=== PATIENT | male | born 1955 | race Caucasian/White ===

== ENCOUNTER 2020-07-20 08:22 | Inpatient (IN) ==
--- NOTE | 2020-06-30 08:56 | PAT Medication Instructions ---
Medication Instructions Date of Service June 30, 2020 Home Medications atorvastatin 40 mg PO QAM celecoxib 200 mg PO BID empagliflozin 25 mg PO QAM fluoxetine 40 mg PO QAM gabapentin 300 mg PO BID hydroxyzine HCl 10 mg PO QID PRN insulin aspart U-100 [Novolog U-100 Insulin aspart] 6 unit SUBCUT QID insulin glargine [Lantus U-100 Insulin] 36 unit SUBCUT QPM lisinopril 5 mg PO QAM metformin 1,000 mg PO BID trazodone 300 mg PO HS ASK your surgeon for instructions celecoxib 200 mg PO BID DO NOT take the morning of surgery empagliflozin 25 mg PO QAM hydroxyzine HCl 10 mg PO QID PRN insulin aspart U-100 [Novolog U-100 Insulin aspart] 6 unit SUBCUT QID lisinopril 5 mg PO QAM metformin 1,000 mg PO BID Take morning of surgery With a small sip of water, OTHERWISE NOTHING TO EAT OR DRINK AFTER MIDNIGHT: atorvastatin 40 mg PO QAM fluoxetine 40 mg PO QAM gabapentin 300 mg PO BID Take evening before surgery gabapentin 300 mg PO BID hydroxyzine HCl 10 mg PO QID PRN (if needed) insulin glargine [Lantus U-100 Insulin] 36 unit SUBCUT QPM metformin 1,000 mg PO BID trazodone 300 mg PO HS Other Notes If you have any questions please call us at [phone] or [phone] or [phone] or [phone]
--- NOTE | 2020-06-30 12:30 | Anesthesiology Consultation ---
Date of Service June 30, 2020 Assessment & Plan (1) Encounter for pre-operative examination: COVID Status: As of 06/30 assessment, patient denies travel to endemic area, known exposure/sick contacts, or symptoms of COVID19. Patient instructed that they and their household members must follow strict social distancing guidelines, wear a mask in public and avoid travel/events/gatherings for 14 days prior to surgery. Patient reports he and his will continue to isolate and do not have any Thanksgiving plans. Preoperative COVID19 testing to be completed prior to surgery per surgeon's arrangements. Patient made aware to self-isolate as much as possible between COVID testing and surgery. At this time patient unsure of when he is to get his COVID test done. Instructed him to check with his surgeon's office, as timing may differ due to the holiday. BSG AM DOS Chart Review Chart Review: Acceptable Risk for Surgery (pending PCP clearance and echo to be done at [facility] 07/05) and Patient seen in Pre Admission Testing Teaching & Discussion Instructed NPO after midnight before surgery, except medications with 15 cc of water. Medication instructions provided according to the PAT guidelines. History Surgery Operation Date: 07/20/20 10:05 Proposed Procedures p L4-S1 Decompression Fusion, Spinal Cord Monitoring - Josh Sinlcair, Height/Weight Height: 5 ft 11 in Weight: 89 kg Allergies Allergy/AdvReac Type Severity Reaction Status Date / Time No Known Allergies Allergy Verified 06/29/20 08:54 Medications Home Medications Medication Instructions Recorded Confirmed Last Taken atorvastatin 40 mg PO QAM 06/29/20 06/29/20 Unknown celecoxib 200 mg PO BID 06/29/20 06/29/20 Unknown empagliflozin 25 mg PO QAM 06/29/20 06/29/20 Unknown fluoxetine 40 mg PO QAM 06/29/20 06/29/20 Unknown gabapentin 300 mg PO BID 06/29/20 06/29/20 Unknown hydroxyzine HCl 10 mg PO QID PRN 06/29/20 06/29/20 Unknown insulin aspart U-100 [Novolog 6 unit SUBCUT QID 06/29/20 06/29/20 Unknown U-100 Insulin aspart] insulin glargine [Lantus U-100 36 unit SUBCUT QPM 06/29/20 06/29/20 Unknown Insulin] lisinopril 5 mg PO QAM 06/29/20 06/29/20 Unknown metformin 1,000 mg PO BID 06/29/20 06/29/20 Unknown trazodone 300 mg PO HS 06/29/20 06/29/20 Unknown Past Medical History Medical History Arthritis Chronic back pain LOWER BACK Diabetes mellitus, type 2 Hyperlipidemia Hypertension Neuropathy Post traumatic stress disorder Sciatica SOB (shortness of breath) on exertion OUT OF SHAPE Exercise / Class Metabolic Activity III < 4 Walking/Shop/Light housework (Denies any chest pain, some SOB with sta irs due to pain, limited acitivity due to back pain) Past Surgical History Surgical History (Updated 06/29/20 @ 09:06 by Joya Herrera RN) H/O pyloroplasty INFANT History of cholecystectomy History of colonoscopy History of esophagogastroduodenoscopy (EGD) S/P foot surgery, right SECOND TOE Past Anesthesia History No Hx of Anesthesia Complications and No Family Hx of Anesthesia Complications History of PONV No Hx of PONV and No Hx of Motion Sickness Social History Smoking Status: Current every day smoker tobacco type: cigarettes Smoking cigarettes per day: 10 CIGS PER DAY X 50 YRS Do You Dip or Chew Tobacco: No Hx Alcohol Use: No Hx Substance Use: Yes substance use type: marijuana Substance Use Type Other:: MARIJUANA VAPES NIGHTLY -- ADVISED NONE X 72 HRS PRIOR TO SURGERY Review of Systems Pt denies any recent chest pain, shortness of breath, palpitations, cough, fever, URI, or uncontrolled acid reflux. Physical Exam Vital Signs BP: 130/83 P: 69bpm SPO2: 95% RA T: 97.8 F R: 16 ENMT Mouth: + edentulous Thyromental Distance: > or= 3.5 Finger Breadths Mallampati Class: I Neck + limited neck extension and + facial hair (large bushy [place], pt does not want to shave but will trim around mouth) Respiratory normal respiratory effort and + prolonged expiratory phase Auscultation: lungs clear to auscultation bilaterally Cardiovascular RRR, no murmur, no edema Testing Laboratory Results 06/30/20 12:41 06/30/20 12:41 PT 10.9 Seconds (9.0-12.0) 06/30/20 12:41 INR 1.0 (0.9-1.1) 06/30/20 12:41 APTT 28.7 Seconds (21.0-31.0) 06/30/20 12:41 Urine Color Yellow 06/30/20 12:41 Urine Appearance Clear (Clear) 06/30/20 12:41 Urine pH 5.5 (4.5-7.5) 06/30/20 12:41 Ur Specific [place] 1.033 (1.000-1.030) H 06/30/20 12:41 Urine Protein Negative (Negative) 06/30/20 12:41 Urine Glucose (UA) 3+ (Negative) H 06/30/20 12:41 Urine Ketones Negative (Negative) 06/30/20 12:41 Urine Nitrite Negative (Negative) 06/30/20 12:41 Ur Leukocyte Esterase Negative (Negative) 06/30/20 12:41 Blood Type B Positive 06/30/20 12:41 Antibody Screen NEGATIVE 06/30/20 12:41 Electrocardiogram Date: 06/30/20 Findings: + NSR @ (66bpm) Left axis deviation. Chest X-Ray Date: 06/30/20 Findings: + NAD
--- NOTE | 2020-06-30 13:09 | XRay Report ---
TWO VIEW CHEST CLINICAL HISTORY: Preoperative examination. FINDINGS: PA and lateral chest radiographs are obtained. No prior studies are available for compariso n at the time of dictation. The cardiomediastinal silhouette is unremarkable. There is mild bibasila r scarring/atelectasis. The lungs and pleural spaces are otherwise clear. There is no pneumothorax. T he bony thorax appears intact. IMPRESSION: No active disease in the chest. ACT 112: Negative or not required by law. Electronically signed by: Jarrett Lozoya M.D. 06/30/2020 1:08 PM
--- NOTE | 2020-06-30 13:12 | Electrocardiogram Report ---
Test Reason : Blood Pressure : / mmHG Vent. Rate : 066 BPM Atrial Rate : 066 BPM P-R Int : 144 ms QRS Dur : 094 ms QT Int : 436 ms P-R-T Axes : 030 -36 031 degrees QTc Int : 457 ms Normal sinus rhythm Left axis deviation Abnormal ECG No previous ECGs available Confirmed by Perez Laboy ([id number]) on 06/30/2020 1:11:47 PM Referred By: Josh Sinclair Confirmed By:Perez Laboy
[2020-06-30 13:30] LABS: Appearance Urine Clear (Clear); Bilirubin Urine Negative (Negative); Blood Urine Negative (Negative); Color Urine Yellow; Glucose Urine UA 3+ (Negative); Ketones Urine Negative (Negative); Leukocyte Esterase Urine Negative (Negative); Nitrite Urine Negative (Negative); Protein Urine Negative (Negative); Specific Gravity Urine 1.033 (1.000-1.030); Urobilinogen Urine Positive (Negative); pH Urine 5.5 (4.5-7.5)
[2020-06-30 13:46] LABS: Partial Thromboplastin Time 28.7 Seconds (21.0-31.0); Prothrombin Time 10.9 Seconds (9.0-12.0)
[2020-06-30 13:54] LABS: BUN Creatinine Ratio 18.6 (10-20); Calcium 9.6 mg/dl (8.5-10.1); Creatinine Clr Calc Pharmacy 68.5 ml/min; Est GFR (African American) 78.1; Est GFR (Non-African American) 67.4; Potassium 4.4 mmol/L (3.5-5.1)
[2020-06-30 14:23] LABS: Hematocrit (blood only) 50.8 % (42-52); Hemoglobin 17.1 g/dL (14.0-18.0); Mean Corpuscular Hemoglobin 31.4 pg (25-34); Mean Corpuscular Hgb Conc 33.7 g/dL (32-36); Mean Corpuscular Volume 93.4 fL (80-100); Mean Platelet Volume 11.9 fL (7.4-10.4); Platelet Count 106 K/uL (130-400); RDW Coefficient of Variation 13.1 % (11.5-14.5); RDW Standard Deviation 44.7 fL (36.4-46.3); Red Blood Count 5.44 M/uL (4.7-6.1)
[2020-06-30 14:24] LABS: Basophils # (auto) 0.03 K/uL (0-0.2); Basophils % (auto) 0.5 %; Eosinophils # (auto) 0.17 K/uL (0-0.5); Eosinophils % (auto) 2.6 %; Immature Granulocytes # (auto) 0.02 K/uL (0.00-0.02); Immature Granulocytes % (auto) 0.3 %; Lymphocytes # (auto) 1.55 K/uL (1.2-3.4); Lymphocytes % (auto) 23.8 %; Monocytes # (auto) 0.45 K/uL (0.11-0.59); Monocytes % (auto) 6.9 %; Neutrophils # (auto) 4.28 K/uL (1.4-6.5); Neutrophils % (auto) 65.9 %
[~2020-07-20 08:22] MED LIST: ACETAMINOPHEN 500 MG TAB PO SCH; CeleBREX 200 MG CAP PO SCH; GABAPENTIN 300 MG CAP PO SCH; LR 15ML/HR IV SCH; ceFAZolin 2000MG 2,000 MG/15 ML SYR IV SCH
[2020-07-20] MEDS ORDERED: HYDROmorphone INJ 2 MG/ML SYR/VIAL ONE (08:40)
[2020-07-20] MEDS ORDERED: MIDAZOLAM HCL 1 MG/ML 2ML VIAL ONE (08:40)
--- NOTE | 2020-07-20 10:06 | History & Physical Bridge Note ---
Date of Service July 20, 2020 History & Physical Bridge Note I have examined the patient, reviewed the History & Physical and in the interval since the performance of the History & Physical I have noted the following changes of clinical significance: no changes noted
--- NOTE | 2020-07-20 10:07 | History & Physical Report ---
Date of Service July 20, 2020 Assessment & Plan (1) Neurogenic claudication due to lumbar spinal stenosis: Admission and Anticipated Discharge Date Admission Date: L4-S1 decompression fusion History of Present Illness Chief Complaint: Back and bilateral leg pain Primary Care Provider: NO PCP This is a 64-year-old male who presents with above-mentioned diagnosis failing course of nonoperative care is here for surgical invention. Allergies Allergy/AdvReac Type Severity Reaction Status Date / Time No Known Allergies Allergy Verified 07/20/20 08:51 Home Medications Medication Instructions Recorded Confirmed Type atorvastatin 40 mg PO QAM 06/29/20 07/20/20 History celecoxib 200 mg PO BID 06/29/20 07/20/20 History empagliflozin 25 mg PO QAM 06/29/20 07/20/20 History fluoxetine 40 mg PO QAM 06/29/20 07/20/20 History gabapentin 300 mg PO BID 06/29/20 07/20/20 History hydroxyzine HCl 10 mg PO TID PRN 06/29/20 07/20/20 History insulin aspart U-100 [Novolog 6 unit SUBCUT QID 06/29/20 07/20/20 History U-100 Insulin aspart] insulin glargine [Lantus U-100 36 unit SUBCUT QPM 06/29/20 07/20/20 History Insulin] lisinopril 5 mg PO QAM 06/29/20 07/20/20 History metformin 1,000 mg PO BID 06/29/20 07/20/20 History trazodone 300 mg PO HS 06/29/20 07/20/20 History Past Med/Surg History Medical History Arthritis Chronic back pain LOWER BACK Diabetes mellitus, type 2 Hyperlipidemia Hypertension Neuropathy Post traumatic stress disorder Sciatica SOB (shortness of breath) on exertion OUT OF SHAPE Surgical History H/O pyloroplasty History of cholecystectomy History of colonoscopy History of esophagogastroduodenoscopy (EGD) S/P foot surgery, right SECOND TOE Social History Smoking Status: Current every day smoker Cigarettes Per Day: 10 CIGS PER DAY X 50 YRS; Second Hand Exposure: Yes (FATHER/MOTHER/SISTERS SMOKED, SPOUSE SMOKES); Do You Dip or Chew Tobacco: No; Hx Alcohol Use: No Hx Substance Use: Yes Substance Use Type Other:: MARIJUANA VAPES NIGHTLY -- ADVISED NONE X 72 HRS PRIOR TO SURGERY Preferred Language: Tamaz[place] Communication Ability: Effective Sprinkler Irrigation Equipment Mechanic Required: No Beliefs That Will Affect Care: None Current Living Situation: Spouse Other Information That Helps Us Care for You: No Feels Safe at Home: Yes Safety Concerns: Feels Safe At This Time Assistive Devices: Cane, Denture - Upper and Glasses Physical Exam Physical Exam: Patient is alert and oriented Heart regular rate and rhythm Lungs clear to auscultation Results & Data ([facility]) Vital Signs (Past 12 Hours) Vital Signs Temp Pulse Resp BP Pulse Ox 07/20/20 08:58 37.1 C 93 H 18 188/94 H 96
[2020-07-20] MEDS ORDERED: fentaNYL citrate 100 MCG/2 ML VIAL IV PRN (10:12)
[2020-07-20] MEDS ORDERED: ATROPINE SULFATE 0.1 MG/ML 10ML SYR IV PRN (10:12)
[2020-07-20] MEDS ORDERED: ONDANSETRON INJ 2 MG/ML 2 ML VIAL IV PRN ×2 (10:12→14:23)
[2020-07-20] MEDS ORDERED: ePHEDrine sulfate 50 MG/ML AMP IV PRN (10:12)
[2020-07-20] MEDS ORDERED: HYDROmorphone INJ 1 MG/ML SYRINGE IV PRN ×2 (10:12→14:23)
[2020-07-20] MEDS ORDERED: BUPIVACAINE/EPINEPHRINE 0.5% MPF 1:200,000 30 ML VIAL ONE (10:20)
[2020-07-20] MEDS ORDERED: BACITRACIN INJ 50,000 UNIT VIAL ONE (10:21)
[2020-07-20] MEDS ORDERED: NEOSTIGMINE METHYLSULFATE 1 MG/ML 10ML VIAL ONE (11:06)
[2020-07-20] MEDS ORDERED: ePHEDrine sulfate 50 MG/ML SYR ONE (11:06)
[2020-07-20] MEDS ORDERED: ONDANSETRON INJ 2 MG/ML 2 ML VIAL ONE (11:06)
[2020-07-20] MEDS ORDERED: ROCURONIUM BROMIDE 10 MG/ML 5 ML VIAL IV ONE (11:06)
[2020-07-20] MEDS ORDERED: LIDOCAINE HCL 2% 2 ML VIAL/AMP(20MG/ML) INFIL ONE (11:06)
[2020-07-20] MEDS ORDERED: GLYCOPYRROLATE 0.2 MG/ML VIAL ONE (11:06)
[2020-07-20] MEDS ORDERED: DEXAMETHASONE SOD INJ 4 MG/ML VIAL ONE (11:06)
[2020-07-20] MEDS ORDERED: PROPOFOL IV EMULSION 10 MG/ML 20 ML VIAL IV ONE (11:06)
[2020-07-20] MEDS ORDERED: LARYING-O-JET KIT (LTA) ONE (11:16)
[2020-07-20] MEDS ORDERED: PHENYLEPHRINE 100MCG/ML 5ML SYR ONE (12:05)
[2020-07-20] MEDS ORDERED: FLOSEAL HEMOSTATIC MATRIX 10ML TOP ONE (12:49)
--- NOTE | 2020-07-20 12:51 | Operative Report ---
Post Operative Report Pre & Post Diagnosis Operation Date: 07/20/20 10:25 Pre-Op Diagnosis: Lumbar spinal stenosis with neurogenic claudication Post-Op Diagnosis: Same I identified the patient and participated in the time-out.: Yes Procedure Operation Date: 07/20/20 10:25 Actual Procedures #1 revision decompression with bilateral medial facetectomies and foraminotomies L3-4, L4-5 and L5-S1. #2 posterior spinal fusion L4-5 L5-S1. #3 placement posterior instrumentation L4-5 L5-S1. #4 interbody fusion L4-5 L5-S1. #5 placement peek cage 11 x 22 mm at L4-5 and 12 x 22 mm at L5-S1. #6 placement locally harvested morselized autograft in the posterior gutters. #7 placement infuse collagen sponge, master graft in the posterior gutters and ostial in terbody space. Surgeon Josh Sinclair DO Laundry Attendant Ninoska Calabrese Estimated Blood Loss 300 Findings Consistent with Post-Op Diagnosis Specimens None Indications This is a 64-year-old male who presents with above-mentioned diagnosis after failing course of nonoperative care is here for the above-mentioned procedure. Description of Procedure Patient was met with identified informed consent obtained. Patient was then taken to the operative suite under the patient placed in a prone position on the Paulo table on top David frame. All bony prominences well-padded eyes inspected to ensure no external pressure placed upon the bed at this point the lumbar spine was prepped and draped in normal sterile fashion. Sharp dissection with the assistance of Bovie cautery was performed down to and exposing the lamina and transverse processes of L4-L5 and the sacral ala bilaterally. From a caudal cephalad fashion revision complete laminectomy of L5 L4 partial laminectomy of L3 was performed including bilateral medial facetectomies and foraminotomies addressing severe spinal stenosis. Pedicle screws were then placed in all 4 L5 and S1 levels bilaterally with the assistance of fluoroscopy and the proper sized jazmyn placed. Of a transforaminal portion right complete discectomy of L5-S1 was performed endplates curetted to subcortical bleeding bone and a 12 x 26 mm peek cage filled osteobone graft tapped in position. Then proceeded L4-[address] of a transforaminal approach on the right complete discectomy was performed endplates curetted to subcortical mean bone and an 11 x 26 mm peek cage with osteobone graft tapped in position. The rods were then locked in final position bilaterally. The transverse processes of L4- L5 and sacral ala burred to subcortical bleeding bone. Infuse collagen sponge mass graft local autograft was placed in the posterior gutters. 15 round VENKATESH drain inserted. The incision was then closed with 1 Vicryl the fascia 2-0 Vicryl subcutaneously and 4 Monocryl for final skin closure. Steri-Strip sterile dressings placed. Patient waken taken PACU stable condition. Please note spinal cord monitoring was utilized at the procedure no changes noted. Lastly Ninoska Calabrese was present at the entire surgery involved in patient positioning complex portions of the surgery and final skin closure. I attest to the content of the Intraoperative Record and any orders documented therein. Any exceptions are noted below.
--- NOTE | 2020-07-20 13:08 | Fluoroscopy Report ---
FL lumbar spine 2-3V CLINICAL HISTORY: L4-S1 DECOMP/FUSION COMPARISON STUDY: None. FLUOROSCOPY TIME: 16 seconds. FINDINGS: 2 fluoroscopic spot images of the lumbar spine demonstrate posterior decompression and fusi on from L4 through S1 with pedicle screws and rods. The hardware appears intact. IMPRESSION: Fluoroscopy provided for L4-S1 posterior decompression and fusion ACT 112: Negative or not required by law. Electronically signed by: Koko Leyva M.D. 07/20/2020 1:06 PM
[2020-07-20] MEDS ORDERED: hydrOXYzine HCl 10 MG TAB PO PRN (14:23)
[2020-07-20] MEDS ORDERED: ONDANSETRON 4 MG OD TAB PO PRN (14:23)
[2020-07-20] MEDS ORDERED: ACETAMINOPHEN 1,000 MG/100 ML VIAL IV PRN (14:23)
[2020-07-20] MEDS ORDERED: FAMOTIDINE 20 MG TAB PO PRN (14:23)
[2020-07-20] MEDS ORDERED: traMADol HCL 50 MG TABLET PO PRN (14:23)
[2020-07-20] MEDS ORDERED: ACETAMINOPHEN 500 MG TAB PO PRN (14:23)
[2020-07-20] MEDS ORDERED: PROMETHAZINE HCL 12.5 MG in SODIUM CHLORIDE 0.9% 50 ML IV PRN (14:23)
[2020-07-20] MEDS ORDERED: MAGNESIUM HYDROXIDE SUSP 30 ML UDC PO PRN (14:23)
[2020-07-20] MEDS ORDERED: diphenhydrAMINE Capsule 25 MG CAP PO PRN (14:23)
[2020-07-20] MEDS ORDERED: METOCLOPRAMIDE HCL INJ 5 MG/ML 2 ML VIAL IV PRN (14:23)
[2020-07-20] MEDS ORDERED: DO NOT ADMINISTER FLU VACCINE PRN (14:23)
[2020-07-20] MEDS ORDERED: ALUMINUM/MAGNESIUM SUSP 30 ML UDC PO PRN (14:23)
[2020-07-20] MEDS ORDERED: LORazepam 0.5 MG TAB PO PRN (14:23)
[2020-07-20] MEDS ORDERED: bisacodyL 10 MG SUPP PR PRN (14:23)
[2020-07-20] MEDS ORDERED: LORazepam 0.5 MG/1 ML VIAL IV PRN (14:23)
[2020-07-20] MEDS ORDERED: DO NOT ADMINISTER PNEUMOCOCCAL VACCINE PRN (14:23)
[2020-07-20] MEDS ORDERED: HYDROmorphone INJ 0.5 MG/0.5 ML SYR IV PRN (14:23)
[2020-07-20] MEDS ORDERED: hydrOXYzine HCl 25 MG TAB PO PRN (14:23)
[2020-07-20] MEDS ORDERED: NALOXONE HCL 0.4 MG/1 ML VIAL/CARP IV PRN (14:23)
[2020-07-20] MEDS ORDERED: SOD PHOSPHATE/SOD BIPHOSPHATE ENEMA 132 ML BTL PR PRN (14:23)
[2020-07-20] MEDS ORDERED: GLUCOSE 40% GEL 15 GM TUBE PO PRN ×2 (14:45→15:45)
[2020-07-20] MEDS ORDERED: DEXTROSE 50% 50 ML SYRINGE IV PRN ×2 (14:45→15:45)
[2020-07-20] MEDS ORDERED: CARBOHYDRATES FOR HYPOGLYCEMIA PO PRN ×2 (14:45→15:45)
[2020-07-20] MEDS ORDERED: GLUCOSE 10 TABS/TUBE PO PRN ×2 (14:45→15:45)
[2020-07-20] MEDS ORDERED: GLUCAGON FOR INJ 1 MG VIAL IM PRN ×2 (14:45→15:45)
[2020-07-20] MEDS ORDERED: PHARMACY GLYCEMIC MGMT CONSULT PRN (15:15)
[2020-07-20] MEDS: SODIUM CHLORIDE 0.9% 1000ML 1,000 ML IV SCH ×2 (15:31→23:59)
--- NOTE | 2020-07-20 15:59 | Hospitalist Consultation ---
Date of Consultation July 20, 2020 Assessment & Plan (1) Neurogenic claudication due to lumbar spinal stenosis: POD #0 lumbar decompression and fusion - no immediate complications noted - Pain control, PT/OT, DVT prophylaxis per primary service - Encourage incentive spirometry (2) Hypertension: Currently taking Lisinopril 5 mg po daily per pt although last cardiology note mentioned increasing to 10 mg daily. Pt unsure if he made the change. Since BP is currently only 113/70 will continue the 5 mg for now. Recommend he f/u with PCP as outpatient to determine if higher dose is necessary/ (3) Diabetes mellitus, type 2: Pharmacy consult for assistance with glycemic management - appreciate input (4) Post traumatic stress disorder: - Continue outpatient meds (5) Hyperlipidemia: - Continue statin therapy (6) Tobacco abuse: Pt requests nicotine patch while admitted - aware of the need to continue to work towards quitting Pt seen and reviewed with collaborating physician, Dr. Mcghee. Plan of care discussed and as outlined above. We will continue to follow the patient with you. A member of the [facility] Hospitalist team is available 11/03 at [phone]. Please don't hesitate to call with questions. Thank you for this consultation. Katarina Meza PA-C Supervising Physician Co-Signing Physician Notes Patient seen and examined by me, care coordinated with Michelle Meza PA-C, please refer to her note above for further detail. Pt is a 64 y/o male with a hx of IRDM, HTN, dyslipidemia and PTSD/anxiety, tobacco use who underwent lumbar decompression/fusion today by Dr. Sinclair and f or whom we have been consulted to assist with post-operative medical management. Pt is currently seen lying in bed without specific complaint. He has some lower back pain but overall feels this is controlled. At present, he denies chest pain, shortness of breath, abdominal pain, Loera catheter is placed. He is able to move his lower extremities. Lungs are clear to auscultation bilaterally, without any crackles or wheezing. Heart sounds regular. Abdomen soft, nontender, nondistended. Loera catheter is draining clear yellow urine. Drains with serosanguineous fluid noted. Continue to monitor vital signs, monitor for acute blood loss anemia, wean off oxygen as tolerated. Counseled patient on tobacco use, will order nicotine patch while inpatient. Alexys Mcghee MD History of Present Illness Reason for Consultation: Post-operative medical management Attending Physician: Josh Sinclair DO History of Present Illness This is a 64 y/o male with a PMH of IRDM, HTN, dyslipidemia and PTSD/anxiety who underwent lumbar decompression/fusion today by Dr. Sinclair and for whom we have been consulted to assist with post-operative medical management. Pt is currently seen lying in bed without specific complaint. He has some lower back pain but overall feels this is controlled. He reports that he had some lower extremity weakness prior to surgery with at least one fall at home related to this. History of a prior back surgery for sciatica after which he did well for several years. At present, he denies chest pain, shortness of breath, wheezing, ST, N/V, dizziness or MONTOYA. He notes no change to his chronic cough. He has been trying to cut back on smoking but reports that he is still smoking at least 1/2 PPD and would like a nicotine patch while he is here. He uses an insulin sliding scale at home as well as Lantus 36 units at bedtime. Insulin requirements can be somewhat variable. Allergies Allergy/AdvReac Type Severity Reaction Status Date / Time No Known Allergies Allergy Verified 07/20/20 08:51 Home Medications Medication Instructions Recorded Confirmed Type atorvastatin 40 mg PO QAM 06/29/20 07/20/20 History celecoxib 200 mg PO BID 06/29/20 07/20/20 History empagliflozin 25 mg PO QAM 06/29/20 07/20/20 History fluoxetine 40 mg PO QAM 06/29/20 07/20/20 History gabapentin 300 mg PO BID 06/29/20 07/20/20 History hydroxyzine HCl 10 mg PO TID PRN 06/29/20 07/20/20 History insulin aspart U-100 [Novolog 6 unit SUBCUT QID 06/29/20 07/20/20 History U-100 Insulin aspart] insulin glargine [Lantus U-100 36 unit SUBCUT QPM 06/29/20 07/20/20 History Insulin] lisinopril 5 mg PO QAM 06/29/20 07/20/20 History metformin 1,000 mg PO BID 06/29/20 07/20/20 History trazodone 300 mg PO HS 06/29/20 07/20/20 History Patient History Medical History Arthritis Chronic back pain LOWER BACK Diabetes mellitus, type 2 Hyperlipidemia Hypertension Neuropathy Post traumatic stress disorder Sciatica SOB (shortness of breath) on exertion OUT OF SHAPE Surgical History H/O pyloroplasty INFANT History of cholecystectomy History of colonoscopy History of esophagogastroduodenoscopy (EGD) S/P foot surgery, right SECOND TOE Social History Smoking Status: Current every day smoker Cigarettes Per Day: 10 CIGS PER DAY X 50 YRS; Second Hand Exposure: Yes (FATHER/MOTHER/SISTERS SMOKED, SPOUSE SMOKES); Do You Dip or Chew Tobacco: No; Hx Alcohol Use: No Hx Substance Use: Yes Substance Use Type Other:: MARIJUANA VAPES NIGHTLY -- ADVISED NONE X 72 HRS PRIOR TO SURGERY Preferred Language: Welsh Communication Ability: Effective Sanitary Landfill Supervisor Required: No Beliefs That Will Affect Care: None Current Living Situation: Spouse Other Information That Helps Us Care for You: No Feels Safe at Home: Yes Safety Concerns: Feels Safe At This Time Assistive Devices: Denture - Upper and Walker Review of Systems Review of Systems: All systems reviewed & are unremarkable except as noted in HPI & below Constitutional: no fever, no chills and no sweats Eyes: no diplopia Ear, Nose, Mouth, Throat: no sore throat and no dysphagia Respiratory: + cough (chronic and unchanged); no dyspnea and no wheezing Cardiovascular: + dyspnea on exertion (chronic with walking uphill); no chest pain, no palpitations, no lightheadedness and no edema Gastrointestinal: no abdominal pain, no nausea and no vomiting Genitourinary: + problem reported (catheter in place but still with urge to urinate); no dysuria Musculoskeletal: + back pain Neurologic: + unsteadiness and + falls (legs gave out about a month ago - fell at home); no dizziness, no syncope, no headache(s) and no abnormal speech Psychiatric: Hx PTSD and anxiety - overall controlled with medications Physical Exam Constitutional: well developed and well nourished; no acute distress Eyes: + anicteric sclerae Neck: trachea midline Respiratory: no respiratory distress and no labored breathing Auscultation: lungs clear to auscultation bilaterally; no rales, no rhonchi and no wheezes Cardiovascular: Rate/Rhythm: regular rate and regular rhythm Heart Sounds: no gallop, no murmur and no cardiac rub Gastrointestinal (Abdomen): Inspection/Auscultation: normal bowel sounds; abdomen not distended Percussion/Palpation: abdomen soft; abdomen nontender Musculoskeletal: Head/Neck/Chest: normocephalic, head atraumatic and neck supple VENKATESH drain with small amount of sanguinous drainage Skin: no rashes, warm and dry Neurologic: Moving all extremities. Psychiatric: A+Ox3, euthymic affect Results & Data Results & Data ([facility]) Vital Signs (Past 12 Hours) Vital Signs Temp Pulse Pulse Resp BP BP Pulse Ox 07/20/20 15:14 36.4 C L 94 H 16 113/70 96 07/20/20 14:32 100 H 16 155/72 H 97 07/20/20 14:00 36.5 C 93 H 18 151/80 H 98 07/20/20 13:40 36.3 C L 90 12 144/72 H 99 07/20/20 13:30 90 13 156/81 H 98 07/20/20 13:20 83 12 139/69 98 07/20/20 13:10 76 12 107/59 L 97 07/20/20 13:04 36.3 C L 89 16 101/60 96 07/20/20 08:58 37.1 C 93 H 18 188/94 H 96 Laboratory Results 06/30/20 06/30/20 06/30/20 12:41 12:41 12:41 WBC 6.50 RBC 5.44 Hgb 17.1 Hct 50.8 MCV 93.4 MCH 31.4 MCHC 33.7 RDW Std Deviation 44.7 RDW Coeff of Ade 13.1 Plt Count 106 L MPV 11.9 H Immature Gran % (Auto) 0.3 Neut % (Auto) 65.9 Lymph % (Auto) 23.8 [place] % (Auto) 6.9 Eos % (Auto) 2.6 Baso % (Auto) 0.5 Neut # (Auto) 4.28 Lymph # (Auto) 1.55 [place] # (Auto) 0.45 Eos # (Auto) 0.17 Baso # (Auto) 0.03 Immature Gran # (Auto) 0.02 PT 10.9 INR 1.0 APTT 28.7 PTT Ratio 1.0 Sodium Potassium Chloride Carbon Dioxide Anion Gap BUN Creatinine Est Cr Clr Drug Dosing Est GFR ( Amer) Est GFR (Non-Af Amer) BUN/Creatinine Ratio Glucose POC Glucose Calcium Urine Color Urine Appearance Urine pH Ur Specific [place] Urine Protein Urine Glucose (UA) Urine Ketones Urine Blood Urine Nitrite Urine Bilirubin Urine Urobilinogen Ur Leukocyte Esterase Blood Type B Positive Antibody Screen NEGATIVE Crossmatch 06/30/20 06/30/20 07/20/20 12:41 12:41 08:46 WBC RBC Hgb Hct MCV MCH MCHC RDW Std Deviation RDW Coeff of Ade Plt Count MPV Immature Gran % (Auto) Neut % (Auto) Lymph % (Auto) [place] % (Auto) Eos % (Auto) Baso % (Auto) Neut # (Auto) Lymph # (Auto) [place] # (Auto) Eos # (Auto) Baso # (Auto) Immature Gran # (Auto) PT INR APTT PTT Ratio Sodium 139 Potassium 4.4 Chloride 107 Carbon Dioxide 29 Anion Gap 3.0 BUN 21 H Creatinine 1.13 Est Cr Clr Drug Dosing 68.5 Est GFR ( Amer) 78.1 Est GFR (Non-Af Amer) 67.4 BUN/Creatinine Ratio 18.6 Glucose 160 H POC Glucose 181 H Calcium 9.6 Urine Color Yellow Urine Appearance Clear Urine pH 5.5 Ur Specific [place] 1.033 H Urine Protein Negative Urine Glucose (UA) 3+ H Urine Ketones Negative Urine Blood Negative Urine Nitrite Negative Urine Bilirubin Negative Urine Urobilinogen Positive H Ur Leukocyte Esterase Negative Blood Type Antibody Screen Crossmatch 07/20/20 07/20/20 07/20/20 09:18 13:06 14:20 WBC RBC Hgb Hct MCV MCH MCHC RDW Std Deviation RDW Coeff of Ade Plt Count MPV Immature Gran % (Auto) Neut % (Auto) Lymph % (Auto) [place] % (Auto) Eos % (Auto) Baso % (Auto) Neut # (Auto) Lymph # (Auto) [place] # (Auto) Eos # (Auto) Baso # (Auto) Immature Gran # (Auto) PT INR APTT PTT Ratio Sodium Potassium Chloride Carbon Dioxide Anion Gap BUN Creatinine Est Cr Clr Drug Dosing Est GFR ( Amer) Est GFR (Non-Af Amer) BUN/Creatinine Ratio Glucose POC Glucose 216 H 234 H Calcium Urine Color Urine Appearance Urine pH Ur Specific [place] Urine Protein Urine Glucose (UA) Urine Ketones Urine Blood Urine Nitrite Urine Bilirubin Urine Urobilinogen Ur Leukocyte Esterase Blood Type B Positive Antibody Screen NEGATIVE Crossmatch See Detail Diagnostic Findings Chest X-ray 06/30/20 - IMPRESSION: No active disease in the chest. Medications Administered Lactated Ringer's (Lr) 1,000 mls @ 15 mls/hr IV .Q24H MARY Stop: 07/21/20 05:59 Last Infusion: 07/20/20 10:36 Dose: 0 mls/hr Documented by: [id number] Admin: 07/20/20 09:29 Dose: 15 mls/hr Documented by: [id number] Cefazolin Sodium (Ancef 2000mg) 2,000 mg in 15 mls @ 3.75 mls/min IV Q8H [facility]; Protocol Stop: 07/21/20 02:03 Last Admin: 07/20/20 17:14 Dose: 3.75 mls/min Documented by: [id number] Sodium Chloride (Nss 1000ml) 1,000 mls @ 100 mls/hr IV .Q10H MARY Stop: 08/19/20 14:22 Last Admin: 07/20/20 15:31 Dose: 100 mls/hr Documented by: [id number] Insulin Aspart (Insulin Aspart 100 Units/Ml 3 Ml Pen) 0 units SC ACHS MARY Stop: 08/19/20 16:29 Last Admin: 07/20/20 17:13 Dose: 12 units Documented by: [id number] Cosigned by: [id number] Ketorolac Tromethamine (Ketorolac Tromethamine 15 Mg/Ml Vial) 15 mg IV Q6 MARY Stop: 07/21/20 12:01 Last Admin: 07/20/20 17:15 Dose: 15 mg Documented by: [id number] Nicotine (Nicotine 21 Mg/24 Hr Tdsy) 21 mg TD QAM MARY Stop: 08/19/20 16:59 Last Admin: 07/20/20 17:14 Dose: Not Given Documented by: [id number] Discontinued Medications Acetaminophen (Acetaminophen 500 Mg Tab) 1,000 mg PO PREOP MARY Stop: 07/20/20 18:00 Last Admin: 07/20/20 09:29 Dose: 1,000 mg Documented by: [id number] Bacitracin (Bacitracin Inj 50,000 Unit Vial) Confirm Administered Dose 50,000 units .ROUTE .STK-MED ONE Stop: 07/20/20 10:22 Last Admin: 07/20/20 11:30 Dose: 50,000 units Documented by: [id number] Bupivacaine HCl/Epinephrine Bitart (Bupivacaine/Epinephrine 0.5% Mpf 1:200,000 30 Ml Vial) Confirm Administered Dose 30 ml .ROUTE .STK-MED ONE Stop: 07/20/20 10:21 Last Admin: 07/20/20 11:29 Dose: 20 ml Documented by: [id number] Celecoxib (Celebrex 200 Mg Cap) 200 mg PO PREOP MARY Stop: 07/20/20 18:00 Last Admin: 07/20/20 09:29 Dose: 200 mg Documented by: [id number] Gabapentin (Gabapentin 300 Mg Cap) 300 mg PO PREOP MARY Stop: 07/20/20 18:00 Last Admin: 07/20/20 09:29 Dose: 300 mg Documented by: [id number] Cefazolin Sodium (Ancef 2000mg) 2,000 mg in 15 mls @ 3.75 mls/min IV PREOP MARY; Protocol Stop: 07/20/20 18:00 Last Admin: 07/20/20 10:36 Dose: 3.75 mls/min Documented by: [id number] Insulin Glargine (Insulin Glargine Solostar 100 Units/Ml 3 Ml Pen) 36 units SC 1700 ONE Stop: 07/20/20 17:01 Last Admin: 07/20/20 17:10 Dose: 36 units Documented by: [id number] Cosigned by: [id number] Insulin Human NPH (Novolin-N (Nph) Per Unit Charge) 25 units SQ 1600 ONE Stop: 07/20/20 16:01 Last Admin: 07/20/20 17:08 Dose: 25 units Documented by: [id number] Cosigned by: [id number] Miscellaneous ( Floseal Hemostatic Matrix 10ml) 25 ml TOP ONCE ONE Stop: 07/20/20 12:50 Last Admin: 07/20/20 12:50 Dose: 25 ml Documented by: [id number] (1) Diabetes mellitus, type 2 Diabetes mellitus buttermaker helper insulin use: with correction use (2) Hypertension Hypertension type: essential hypertension Qualified Code(s): I10 - Essential (primary) hypertension
[2020-07-20] MEDS ORDERED: NovoLIN-N (NPH) PER UNIT CHARGE SQ ONE ×2 (16:00)
--- NOTE | 2020-07-20 16:12 | Anesthesiology Progress Note ---
Date of Service July 20, 2020 Anesthesia Post Procedure Vital Signs Vital Signs: Temp Pulse Pulse Resp BP BP Pulse Ox 07/20/20 16:01 36.3 C L 101 H 18 127/71 97 07/20/20 15:14 36.4 C L 94 H 16 113/70 96 07/20/20 14:32 100 H 16 155/72 H 97 07/20/20 14:00 36.5 C 93 H 18 151/80 H 98 07/20/20 13:40 36.3 C L 90 12 144/72 H 99 07/20/20 13:30 90 13 156/81 H 98 07/20/20 13:20 83 12 139/69 98 07/20/20 13:10 76 12 107/59 L 97 07/20/20 13:04 36.3 C L 89 16 101/60 96 07/20/20 08:58 37.1 C 93 H 18 188/94 H 96 Pain Intensity Lower Back: Pain Intensity: 4 Transfer of Care Handoff Completed per policy Notes Mental Status: alert / awake / arousable and participated in evaluation Patient Amnestic to Procedure: Yes Nausea / Vomiting: adequately controlled Pain: adequately controlled Airway Patency, RR, SpO2: stable & adequate BP & HR: stable & adequate Hydration State: stable & adequate Anesthetic Complications: no major complications apparent and Pt Satisfied with anesthetic care
[2020-07-20] MEDS ORDERED: INSULIN GLARGINE SOLOSTAR 100 UNITS/ML 3 ML PEN SC ONE (17:00)
[2020-07-20] MEDS: INSULIN ASPART 100 UNITS/ML 3 ML PEN SC SCH ×2 (17:13→21:34)
[2020-07-20] MEDS: ceFAZolin 2000MG 2,000 MG/15 ML SYR IV SCH (17:14)
[2020-07-20] MEDS: NICOTINE 21 MG/24 HR TDSY TD SCH (17:14)
[2020-07-20] MEDS: KETOROLAC TROMETHAMINE 15 MG/ML VIAL IV SCH ×2 (17:15→23:59)
[2020-07-20] MEDS: traZODone HCL 100 MG TAB PO SCH (21:31)
[2020-07-20] MEDS: GABAPENTIN 300 MG CAP PO SCH (21:32)
[2020-07-20] MEDS: DOCUSATE SODIUM/SENNA 50/8.6MG TAB PO SCH (21:32)
[2020-07-21] MEDS: INSULIN ASPART 100 UNITS/ML 3 ML PEN SC SCH ×6 (00:02→21:27)
[2020-07-21] MEDS: ceFAZolin 2000MG 2,000 MG/15 ML SYR IV SCH (03:12)
[2020-07-21] MEDS: KETOROLAC TROMETHAMINE 15 MG/ML VIAL IV SCH ×2 (04:58→12:51)
[2020-07-21] MEDS: POLYETHYLENE (MIRALAX) 17 GM PACK PO SCH ×3 (04:59→18:00)
[2020-07-21 06:24] LABS: Hematocrit (blood only) 37.7 % (42-52); Hemoglobin 12.9 g/dL (14.0-18.0); Mean Corpuscular Hemoglobin 31.6 pg (25-34); Mean Corpuscular Hgb Conc 34.2 g/dL (32-36); Mean Corpuscular Volume 92.4 fL (80-100); RDW Coefficient of Variation 12.8 % (11.5-14.5); RDW Standard Deviation 43.5 fL (36.4-46.3); Red Blood Count 4.08 M/uL (4.7-6.1); White Blood Count 11.07 K/uL (4.8-10.8)
[2020-07-21 06:49] LABS: Mean Platelet Volume 10.6 fL (7.4-10.4); Platelet Count 88 K/uL (130-400)
[2020-07-21 06:55] LABS: Basophils # (auto) 0.01 K/uL (0-0.2); Basophils % (auto) 0.1 %; Eosinophils # (auto) 0.02 K/uL (0-0.5); Eosinophils % (auto) 0.2 %; Immature Granulocytes # (auto) 0.03 K/uL (0.00-0.02); Immature Granulocytes % (auto) 0.3 %; Lymphocytes # (auto) 0.88 K/uL (1.2-3.4); Lymphocytes % (auto) 7.9 %; Monocytes # (auto) 0.67 K/uL (0.11-0.59); Monocytes % (auto) 6.1 %; Neutrophils # (auto) 9.46 K/uL (1.4-6.5); Neutrophils % (auto) 85.4 %
[2020-07-21 07:00] LABS: BUN Creatinine Ratio 22.9 (10-20); Calcium 8.6 mg/dl (8.5-10.1); Creatinine Clr Calc Pharmacy 77.4 ml/min; Est GFR (African American) 90.5; Est GFR (Non-African American) 78.1; Potassium 3.8 mmol/L (3.5-5.1)
[2020-07-21] MEDS ORDERED: NovoLIN-N (NPH) PER UNIT CHARGE SQ ONE (07:45)
[2020-07-21] MEDS: NICOTINE 21 MG/24 HR TDSY TD SCH (08:36)
[2020-07-21] MEDS: FLUoxetine HCL 20 MG CAP PO SCH (08:37)
[2020-07-21] MEDS: ATORVASTATIN 40 MG TAB PO SCH (08:37)
[2020-07-21] MEDS: GABAPENTIN 300 MG CAP PO SCH ×2 (08:37→21:22)
[2020-07-21] MEDS: lisinopril 5 MG TAB PO SCH (08:38)
[2020-07-21 08:42] LABS: Estimated Average Glucose 160 mg/dl; Hemoglobin A1C 7.2 % (4.5-5.6)
[2020-07-21] MEDS ORDERED: NON-FORMULARY MEDICATION (Empagliflozin 25 mg Tablet) PO SCH (09:00)
--- NOTE | 2020-07-21 10:02 | Orthopedic Progress Note ---
Date of Service July 21, 2020 Assessment & Plan (1) Neurogenic claudication due to lumbar spinal stenosis: Admission and Anticipated Discharge Date Admission Date: July 20, 2020 This time continue physical therapy monitor VENKATESH operatively discharge home in the next few days. Subjective Back pain controlled leg symptoms markedly improved. Physical Exam Physical Exam: Patient is good strength testing appears comfortable. Results & Data ([facility]) Vital Signs (Past 12 Hours) Vital Signs Temp Pulse Resp BP Pulse Ox 07/21/20 07:28 36.7 C 81 16 121/62 96 07/21/20 03:10 36.7 C 89 16 116/64 96 07/20/20 22:47 36.8 C 90 16 105/66 94
--- NOTE | 2020-07-21 11:01 | Pharmacy Report ---
Glycemic Control Consultation - Date of Service July 21, 2020 - Scope Scope: Glycemic Pharmacist consulted for glycemic control and to write orders per [facility] inpatient glycemic control protocol. - Objective Weight: 88.1 kg Accuchecks BSG (last 24hrs): 07/20/20 07/20/20 07/20/20 13:06 14:20 20:37 Glucose POC Glucose 216 H 234 H 277 H 07/21/20 07/21/20 07/21/20 00:02 04:14 06:08 Glucose 148 H POC Glucose 172 H 102 H 07/21/20 07:56 Glucose POC Glucose 180 H Laboratory Data (last 24hrs): 07/21/20 06:08 Potassium 3.8 Carbon Dioxide 26 Anion Gap 5.0 Creatinine 1.00 Est Cr Clr Drug Dosing 77.4 HbA1c: Hemoglobin A1c 7.2 % (4.5-5.6) H 07/21/20 06:08 - Recent Pertinent Medications Outpatient Anti-diabetic Regimen: * Metformin * Jardiance * Novolog 6 units SC QID * Lantus 36 units SC qPM * A1c = 7.2 % 07/21/20 Risk Factors for Insulin Resistance: * Steroids: Dexamethasone 8 mg IV x1 yesterday, none scheduled today, then 8 mg IV qAM ongoing starting tomorrow * Recent Surgery: POD 1 s/p lumbar decompression and fusion * Diet: T2DM - Assessment & Plan Assessment & Plan: ASSESSMENT: * 64 yo M with T2DM with good outpatient control per recent A1c with post-op hyperglycemia 2nd steroids * Effect of dexamethasone yesterday will likely wear off over the course of the day today. * But as AM fasting is significantly elevated, will still add some NPH. Will also continue home dose of Lantus qPM * Will keep Novolog parameters tight despite effects of steroids wearing off today 2nd significant elevation yesterday * Regimen will likely require further adjustment tomorrow when steroids resume PLAN FOR INPATIENT GLYCEMIC CONTROL: * Holding outpatient oral diabetes medications * Basal insulin * NPH 10 units SC x1 this AM. Ongoing determined tomorrow. * Lantus 36 units SQ QDD (home dose) * Bolus insulin * NovoLog per scale ACHS or Q6hrs while NPO * Goal Range: Low 110 mg/dL - High 140 mg/dL * Correction Factor: 20 mg/dL/unit * Nutritional / Prandial insulin per carb ratio of 1 unit per 6 grams CHO consumed Discharge considerations Per Talia Giron: Mr. Spencer is requesting a sliding scale to use post- discharge, as [facility] but [facility]. At this time it's difficult to say what an appropriate correction factor would be as an outpatient, as he's been on steroids here and will be continuing them tomorrow. And therefore starting conservatively is reasonable Discharge recommendation Continue current outpatient regimen and add sliding scale Novolog (in addition to current prandial Novolog), with a correction factor of 30 mg/dL/unit starting with BSG above 140 mg/dL * Please note that the plan above was derived based on current level of insulin resistance and hospital stress. These recommendations are appropriate for inpatient admission only. Plan of care upon discharge will need to be reassessed to avoid potential outpatient hypo/hyperglycemia. Thank you.
[2020-07-21] MEDS: INSULIN GLARGINE SOLOSTAR 100 UNITS/ML 3 ML PEN SC SCH (18:02)
--- NOTE | 2020-07-21 20:31 | Hospitalist Progress Note ---
Date of Service July 21, 2020 Assessment & Plan (1) Post-operative state: POD#1 s/p lumbar surgery by Dr. Sinclair (2) Neurogenic claudication due to lumbar spinal stenosis: POD #1 lumbar decompression and fusion - no immediate complications noted - Pain control, PT/OT - Encourage incentive spirometry -dexamethasone daily per Ortho spine-monitor blood glucose. (3) Hypertension: chronic, stable, BP at goal. Cont current lisinopril. (4) Diabetes mellitus, type 2: Pharmacy consult for assistance with glycemic management -glucose is well controlled post operatively. (5) Post traumatic stress disorder: chronic, stable with no acute issues. Cont fluoxetine and trazodone per home regimen. (6) Tobacco abuse: Nicotine patch provided, encourage to quit. (7) DVT prophylaxis: SCDs Full Dispo-to home in next 1-2 days. Thank you for this consultation. Dalia Atkinson DO [facility]ist Admission and Anticipated Discharge Date Admission Date: July 20, 2020 Subjective cc: consult for post op medical management s/p lumbar surgery, POD#1 -pain well controlled -tolerating PO -has been ambulating -some pain in his feet, that he reports he has discusssed with Dr. Sinclair. -doing well in general Review of Systems Review of Systems: All systems reviewed & are unremarkable except as noted in Subjective Physical Exam Physical Exam: CONSTITUTIONAL: WNWD, vitals as above, generally well- appearing EYES: normal conjunctivae, no scleral icterus ENT: external ear and nose normal, MMM RESPIRATORY: clear to auscultation bilaterally, no crackles, rales or wheezes, normal respiratory effort CARDIOVASCULAR: regular rate and rhythm, S1 and 2 heard without murmurs, gallops or rubs, no JVD, no peripheral edema GASTROINTESTINAL: normal bowel sounds, soft, nontender, nondistended, no guarding. MUSCULOSKELETAL: strength 5/5 throughout, head is normocephalic and atraumatic SKIN: warm and dry NEUROLOGIC: CN 2-12 grossly intact, normal cognition, normal speech, no tremor PSYCHIATRIC: alert cooperative and oriented to person, place and time. Results & Data Results & Data ([facility]) Vital Signs (Past 12 Hours) Vital Signs Temp Pulse Resp BP Pulse Ox 07/21/20 15:31 37.2 C 81 16 124/70 95 Laboratory Results Short CBC 07/21/20 Range/Units 06:08 WBC 11.07 H (4.8-10.8) K/uL Hgb 12.9 L (14.0-18.0) g/dL Hct 37.7 L (42-52) % Plt Count 88 L (130-400) K/uL BMP 07/21/20 06:08 Sodium 141 Potassium 3.8 Chloride 110 H Carbon Dioxide 26 BUN 23 H Creatinine 1.00 Glucose 148 H Calcium 8.6 Medications Administered Current Inpatient Medications Acetaminophen (Acetaminophen 500 Mg Tab) 1,000 mg PO Q8H PRN PRN Reason: MILD Pain Scale 1,2,3 & Pre PT Stop: 08/19/20 14:22 Al Hydrox/Mg Hydrox/Simethicone (Aluminum/Magnesium Susp 30 Ml Udc) 30 ml PO Q6H PRN PRN Reason: Dyspepsia Stop: 08/19/20 14:22 Atorvastatin Calcium (Atorvastatin 40 Mg Tab) 40 mg PO QAM [facility] Stop: 08/20/20 08:59 Last Admin: 07/21/20 08:37 Dose: 40 mg Documented by: Bisacodyl (Bisacodyl 10 Mg Supp) 10 mg MT DAILY PRN PRN Reason: Constipation Stop: 08/19/20 14:22 Dextrose (Dextrose 50% 50 Ml Syringe) 25 - 50 ml IV UD PRN; Protocol PRN Reason: Hypoglycemia Protocol Stop: 08/19/20 15:44 Diphenhydramine HCl (Diphenhydramine Capsule 25 Mg Cap) 25 mg PO Q6H PRN PRN Reason: Allergic Rhinitis/Insomnia Stop: 08/19/20 14:22 Famotidine (Famotidine 20 Mg Tab) 20 mg PO Q12H PRN PRN Reason: Dyspepsia Stop: 08/19/20 14:22 Fluoxetine HCl (Fluoxetine Hcl 20 Mg Cap) 40 mg PO QAM [facility] Stop: 08/20/20 08:59 Last Admin: 07/21/20 08:37 Dose: 40 mg Documented by: Gabapentin (Gabapentin 300 Mg Cap) 300 mg PO BID [facility] Stop: 08/19/20 20:59 Last Admin: 07/21/20 08:37 Dose: 300 mg Documented by: Glucagon (Glucagon For Inj 1 Mg Vial) 1 mg IM UD PRN; Protocol PRN Reason: Hypoglycemia Protocol Stop: 08/19/20 15:44 Glucose (Glucose 40% Gel 15 Gm Tube) 15 - 30 gm PO UD PRN; Protocol PRN Reason: Hypoglycemia Protocol Stop: 08/19/20 15:44 Glucose (Glucose 10 Tabs/Tube) 4 - 8 tabs PO UD PRN; Protocol PRN Reason: Hypoglycemia Protocol Stop: 08/19/20 15:44 Hydromorphone HCl (Hydromorphone Inj 0.5 Mg/0.5 Ml Syr) 0.5 mg IV Q3H PRN PRN Reason: MOD pain (scale 4-6) & Pre PT Stop: 08/03/20 14:22 Hydromorphone HCl (Hydromorphone Inj 1 Mg/Ml Syringe) 1 mg IV Q3H PRN PRN Reason: severe pain (scale 7-10) Stop: 08/03/20 14:22 Hydroxyzine HCl (Hydroxyzine Hcl 10 Mg Tab) 10 mg PO TID PRN PRN Reason: Anxiety Stop: 08/19/20 14:22 Hydroxyzine HCl (Hydroxyzine Hcl 25 Mg Tab) 25 mg PO Q8H PRN PRN Reason: Anxiety Stop: 08/19/20 14:22 Lorazepam (Ativan) 0.5 mg in 1 mls @ 0.5 mls/min IV Q8H PRN PRN Reason: Sedation/Anxiety Stop: 08/19/20 14:22 Promethazine HCl 12.5 mg/ (Sodium Chloride) 50.5 mls @ 204 mls/hr IV Q6H PRN PRN Reason: Nausea &/or Vomiting Stop: 08/19/20 14:22 Dexamethasone Sodium Phosphate (8 mg/ Syringe) 2 mls @ 1 mls/min IV DAILY [facility]ARY Stop: 08/21/20 08:59 Influenza Virus Vaccine Quadrival (Do Not Administer Flu Vaccine) 1 ea N/A PRN PRN PRN Reason: Notification Stop: 08/19/20 14:22 Insulin Aspart (Insulin Aspart 100 Units/Ml 3 Ml Pen) 0 units SC ACHS [facility] Stop: 08/19/20 16:29 Last Admin: 07/21/20 18:00 Dose: 7 units Documented by: Insulin Glargine (Insulin Glargine Solostar 100 Units/Ml 3 Ml Pen) 36 units SC QDD MARY; Protocol Stop: 08/20/20 16:29 Last Admin: 07/21/20 18:02 Dose: 36 units Documented by: Lisinopril (Lisinopril 5 Mg Tab) 5 mg PO [facility] Stop: 08/20/20 08:59 Last Admin: 07/21/20 08:38 Dose: 5 mg Documented by: Lorazepam (Lorazepam 0.5 Mg Tab) 0.5 mg PO Q8H PRN PRN Reason: Sedation/Anxiety Stop: 08/19/20 14:22 Magnesium Hydroxide (Magnesium Hydroxide Susp 30 Ml Udc) 30 ml PO DAILY PRN PRN Reason: Constipation Stop: 08/19/20 14:22 Metoclopramide HCl (Metoclopramide Hcl Inj 5 Mg/Ml 2 Ml Vial) 10 mg IV Q6H PRN PRN Reason: Nausea &/or Vomiting Stop: 08/19/20 14:22 Miscellaneous (Carbohydrates For Hypoglycemia ) 15 - 30 gm PO UD PRN PRN Reason: Hypoglycemia Treatment Stop: 08/19/20 15:44 Miscellaneous (Remove Nicoderm Patch) 1 ea N/A DAILY@0859 [facility] Stop: 08/20/20 08:58 Last Admin: 07/21/20 08:36 Dose: Not Given Documented by: Miscellaneous Information (Pharmacy Glycemic Mgmt Consult) 1 ea N/A UD PRN PRN Reason: Consult Stop: 08/19/20 15:14 Naloxone HCl (Naloxone Hcl 0.4 Mg/1 Ml Vial/Carp) 0.1 mg IV Q5M PRN; Protocol PRN Reason: Oversedation/Resp Depression Stop: 08/19/20 14:22 Nicotine (Nicotine 21 Mg/24 Hr Tdsy) 21 mg TD [facility] Stop: 08/19/20 16:59 Last Admin: 07/21/20 08:36 Dose: Not Given Documented by: Non-Formulary Medication (Empagliflozin) 25 mg PO [facility] Stop: 08/20/20 08:59 Ondansetron HCl (Ondansetron Inj 2 Mg/Ml 2 Ml Vial) 4 mg IV Q6H PRN PRN Reason: Nausea &/or Vomiting Stop: 08/19/20 14:22 Ondansetron HCl (Ondansetron 4 Mg Od Tab) 4 mg PO Q6H PRN PRN Reason: Nausea Stop: 08/19/20 14:22 Oxycodone HCl (Oxycodone Hcl Ir 5 Mg Tab (Immediate Release)) 5 - 10 mg PO Q4H PRN PRN Reason: Moderate-Severe Pain & Pre PT Stop: 08/03/20 14:22 Pneumococcal Polyvalent Vaccine (Do Not Administer Pneumococcal Vaccine) 1 ea N/A PRN PRN PRN Reason: Notification Stop: 08/19/20 14:22 Polyethylene Glycol (Polyethylene (Miralax) 17 Gm Pack) 17 gm PO Q6 [facility] Stop: 08/20/20 05:59 Last Admin: 07/21/20 18:00 Dose: Not Given Documented by: Senna/Docusate Sodium (Docusate Sodium/Senna 50/8.6mg Tab) 2 tab PO HS [facility] Stop: 08/19/20 20:59 Last Admin: 07/20/20 21:32 Dose: 2 tab Documented by: Sodium Biphosphate/Sodium Phosphate (Sod Phosphate/Sod Biphosphate Enema 132 Ml Btl) 132 ml MT ONE PRN PRN Reason: Constipation Stop: 08/19/20 14:22 Tramadol HCl (Tramadol Hcl 50 Mg Tablet) 50 - 100 mg PO Q4H PRN PRN Reason: Moderate-Severe Pain & Pre PT Stop: 08/19/20 14:22 Trazodone HCl (Trazodone Hcl 100 Mg Tab) 300 mg PO [facility] Stop: 08/19/20 20:59 Last Admin: 07/20/20 21:31 Dose: 300 mg Documented by: (1) Diabetes mellitus, type 2 Diabetes mellitus computer terminal operator insulin use: with computer terminal operator use (2) Hypertension Hypertension type: essential hypertension Qualified Code(s): I10 - Essential (primary) hypertension
[2020-07-21] MEDS: traZODone HCL 100 MG TAB PO SCH (21:22)
[2020-07-21] MEDS: DOCUSATE SODIUM/SENNA 50/8.6MG TAB PO SCH (21:26)
[2020-07-21] MEDS: oxyCODONE HCL IR 5 MG TAB (IMMEDIATE RELEASE) PO PRN (21:43)
[2020-07-22] MEDS: oxyCODONE HCL IR 5 MG TAB (IMMEDIATE RELEASE) PO PRN ×4 (05:50→22:55)
[2020-07-22] MEDS: lisinopril 5 MG TAB PO SCH (07:33)
[2020-07-22] MEDS: ATORVASTATIN 40 MG TAB PO SCH (07:33)
[2020-07-22] MEDS: FLUoxetine HCL 20 MG CAP PO SCH (07:33)
[2020-07-22] MEDS: NICOTINE 21 MG/24 HR TDSY TD SCH (07:34)
[2020-07-22] MEDS: dexAMETHasone 8 MG in SYRINGE 0 ML IV SCH (07:34)
[2020-07-22] MEDS: INSULIN ASPART 100 UNITS/ML 3 ML PEN SC SCH ×4 (07:39→20:50)
[2020-07-22] MEDS: GABAPENTIN 300 MG CAP PO SCH ×2 (07:40→20:47)
[2020-07-22] MEDS: INSULIN HUMAN NPH SC SCH (07:55)
--- NOTE | 2020-07-22 10:55 | Orthopedic Progress Note ---
Date of Service July 22, 2020 Assessment & Plan (1) Neurogenic claudication due to lumbar spinal stenosis: Admission and Anticipated Discharge Date Admission Date: July 20, 2020 This time we will continue with physical therapy monitor his VENKATESH output anticip ate discharge home tomorrow. Subjective Back pain fairly severe this morning. Leg symptoms still markedly improved. Physical Exam Physical Exam: Patient appears somewhat uncomfortable today. But does have good strength testing lower extremities. Results & Data ([facility]) Vital Signs (Past 12 Hours) Vital Signs Temp Pulse Resp BP Pulse Ox 07/22/20 06:16 37.2 C 89 16 136/80 94 07/21/20 23:00 37.3 C 76 18 155/81 H 93
--- NOTE | 2020-07-22 11:07 | Pharmacy Report ---
Pharmacy Glycemic Short Note 2 - Date of Service July 22, 2020 - Glycemic Short BSG Results (Last 24 hours): 07/21/20 07/21/20 07/21/20 12:03 17:13 20:43 POC Glucose 165 H 135 H 160 H 07/22/20 06:50 POC Glucose 176 H Outpatient Anti-diabetic Regimen: * Metformin * Jardiance * Novolog 6 units SC QID * Lantus 36 units SC qPM * A1c = 7.2 % 07/21/20 Risk Factors for Insulin Resistance: * Steroids: Dexamethasone 8 mg IV x1 on 07/20, none 07/21, then 8 mg IV qAM ongoing starting 07/22 * Recent Surgery: POD 2 s/p lumbar decompression and fusion * Diet: T2DM ASSESSMENT: 07/22 * BSG's good yesterday, ranging 102-180 mg/dL. However, steroids are resuming this AM - anticipate increased insulin resistance * Will increase NPH dose, which may also help with post-prandial elevations 2nd steroid effects. OK to keep Lantus at home dose/time. * Will tighten Novolog parameters 2nd steroids resuming. May tighten further this evening if BSG's remain high * Anticipated discharge tomorrow per Dr. Sinclair's note today 07/21 * 64 yo M with T2DM with good outpatient control per recent A1c with post-op hyperglycemia 2nd steroids * Effect of dexamethasone yesterday will likely wear off over the course of the day today. * But as AM fasting is significantly elevated, will still add some NPH. Will also continue home dose of Lantus qPM * Will keep Novolog parameters tight despite effects of steroids wearing off today 2nd significant elevation yesterday * Regimen will likely require further adjustment tomorrow when steroids resume PLAN FOR INPATIENT GLYCEMIC CONTROL: * Holding outpatient oral diabetes medications * Basal insulin * NPH 30 units SC x1 today, then 20-40 units qAM starting tomorrow based on BSG * Lantus 36 units SQ QDD (home dose) * Bolus insulin * NovoLog per scale ACHS or Q6hrs while NPO * Goal Range: Low 110 mg/dL - High 140 mg/dL * Correction Factor: 15 mg/dL/unit * Nutritional / Prandial insulin per carb ratio of 1 unit per 5 grams CHO consumed Discharge considerations Per Talia Giron: Mr. Spencer is requesting a sliding scale to use post- discharge, as [facility] but [facility] not [facility]. At this time it's difficult to say what an appropriate correction factor would be as an outpatient, as he's been on steroids here and will be continuing them tomorrow. And therefore starting conservatively is reasonable Discharge recommendation Continue current outpatient regimen and add sliding scale Novolog (in addition to current prandial Novolog), with a correction factor of 30 mg/dL/unit starting with BSG above 140 mg/dL
[2020-07-22] MEDS: INSULIN GLARGINE SOLOSTAR 100 UNITS/ML 3 ML PEN SC SCH (18:21)
--- NOTE | 2020-07-22 20:05 | Hospitalist Progress Note ---
Date of Service July 22, 2020 Assessment & Plan (1) Post-operative state: POD#2 s/p lumbar surgery by Dr. Sinclair (2) Neurogenic claudication due to lumbar spinal stenosis: POD #2 lumbar decompression and fusion - no immediate complications noted - Pain control, PT/OT - Encourage incentive spirometry -dexamethasone daily per Ortho spine-monitor blood glucose. -Symptoms have improved overall. (3) Hypertension: chronic, stable, BP at goal with intermittent high readings today. Cont current lisinopril. Suspect some intermittent high readings related to postoperative discomfort and possibly nicotine withdrawal. (4) Diabetes mellitus, type 2: Pharmacy consult for assistance with glycemic management -glucose is well controlled post operatively. (5) Post traumatic stress disorder: chronic, stable with no acute issues. Cont fluoxetine and trazodone per home regimen. (6) Tobacco abuse: Nicotine patch provided, encourage to quit. (7) DVT prophylaxis: SCDs Full Dispo-to home in AM. Thank you for this consultation. Dalia Atkinson DO [facility] Hospitalist Admission and Anticipated Discharge Date Admission Date: July 20, 2020 Subjective 64-year-old man status post lumbar surgery, postop day 2, consult for postoperative medical management The patient has no complaints today and reports improvement in his peripheral neuropathy. He denies any significant back pain and is tolerating p.o. He is overall doing well. Review of Systems Review of Systems: All systems reviewed & are unremarkable except as noted in Subjective Physical Exam Physical Exam: CONSTITUTIONAL: WNWD, vitals as above, generally well- appearing EYES: normal conjunctivae, no scleral icterus ENT: external ear and nose normal, MMM RESPIRATORY: clear to auscultation bilaterally, no crackles, rales or wheezes, normal respiratory effort CARDIOVASCULAR: regular rate and rhythm, S1 and 2 heard without murmurs, gallops or rubs, no JVD, no peripheral edema GASTROINTESTINAL: normal bowel sounds, soft, nontender, nondistended, no guarding. MUSCULOSKELETAL: strength 5/5 throughout, head is normocephalic and atraumatic, VENKATESH drain in place. SKIN: warm and dry NEUROLOGIC: CN 2-12 grossly intact, normal cognition, normal speech, no tremor PSYCHIATRIC: alert cooperative and oriented to person, place and time. Results & Data Results & Data ([facility]) Vital Signs (Past 12 Hours) Vital Signs Temp Pulse Resp BP Pulse Ox 07/22/20 15:36 36.4 C L 82 16 146/79 H 93 Medications Administered Current Inpatient Medications Acetaminophen (Acetaminophen 500 Mg Tab) 1,000 mg PO Q8H PRN PRN Reason: MILD Pain Scale 1,2,3 & Pre PT Stop: 08/19/20 14:22 Last Admin: 07/22/20 05:50 Dose: 1,000 mg Documented by: Al Hydrox/Mg Hydrox/Simethicone (Aluminum/Magnesium Susp 30 Ml Udc) 30 ml PO Q6H PRN PRN Reason: Dyspepsia Stop: 08/19/20 14:22 Atorvastatin Calcium (Atorvastatin 40 Mg Tab) 40 mg PO QAM [facility] Stop: 08/20/20 08:59 Last Admin: 07/22/20 07:33 Dose: 40 mg Documented by: Bisacodyl (Bisacodyl 10 Mg Supp) 10 mg NM DAILY PRN PRN Reason: Constipation Stop: 08/19/20 14:22 Dextrose (Dextrose 50% 50 Ml Syringe) 25 - 50 ml IV UD PRN; Protocol PRN Reason: Hypoglycemia Protocol Stop: 08/19/20 15:44 Diphenhydramine HCl (Diphenhydramine Capsule 25 Mg Cap) 25 mg PO Q6H PRN PRN Reason: Allergic Rhinitis/Insomnia Stop: 08/19/20 14:22 Famotidine (Famotidine 20 Mg Tab) 20 mg PO Q12H PRN PRN Reason: Dyspepsia Stop: 08/19/20 14:22 Fluoxetine HCl (Fluoxetine Hcl 20 Mg Cap) 40 mg PO QAM [facility] Stop: 08/20/20 08:59 Last Admin: 07/22/20 07:33 Dose: 40 mg Documented by: Gabapentin (Gabapentin 300 Mg Cap) 300 mg PO BID [facility] Stop: 08/19/20 20:59 Last Admin: 07/22/20 07:40 Dose: 300 mg Documented by: Glucagon (Glucagon For Inj 1 Mg Vial) 1 mg IM UD PRN; Protocol PRN Reason: Hypoglycemia Protocol Stop: 08/19/20 15:44 Glucose (Glucose 40% Gel 15 Gm Tube) 15 - 30 gm PO UD PRN; Protocol PRN Reason: Hypoglycemia Protocol Stop: 08/19/20 15:44 Glucose (Glucose 10 Tabs/Tube) 4 - 8 tabs PO UD PRN; Protocol PRN Reason: Hypoglycemia Protocol Stop: 08/19/20 15:44 Hydromorphone HCl (Hydromorphone Inj 0.5 Mg/0.5 Ml Syr) 0.5 mg IV Q3H PRN PRN Reason: MOD pain (scale 4-6) & Pre PT Stop: 08/03/20 14:22 Hydromorphone HCl (Hydromorphone Inj 1 Mg/Ml Syringe) 1 mg IV Q3H PRN PRN Reason: severe pain (scale 7-10) Stop: 08/03/20 14:22 Hydroxyzine HCl (Hydroxyzine Hcl 10 Mg Tab) 10 mg PO TID PRN PRN Reason: Anxiety Stop: 08/19/20 14:22 Hydroxyzine HCl (Hydroxyzine Hcl 25 Mg Tab) 25 mg PO Q8H PRN PRN Reason: Anxiety Stop: 08/19/20 14:22 Lorazepam (Ativan) 0.5 mg in 1 mls @ 0.5 mls/min IV Q8H PRN PRN Reason: Sedation/Anxiety Stop: 08/19/20 14:22 Promethazine HCl 12.5 mg/ (Sodium Chloride) 50.5 mls @ 204 mls/hr IV Q6H PRN PRN Reason: Nausea &/or Vomiting Stop: 08/19/20 14:22 Dexamethasone Sodium Phosphate (8 mg/ Syringe) 2 mls @ 1 mls/min IV DAILY [facility] Stop: 08/21/20 08:59 Last Admin: 07/22/20 07:34 Dose: 1 mls/min Documented by: Influenza Virus Vaccine Quadrival (Do Not Administer Flu Vaccine) 1 ea N/A PRN PRN PRN Reason: Notification Stop: 08/19/20 14:22 Insulin Aspart (Insulin Aspart 100 Units/Ml 3 Ml Pen) 0 units SC ACHS [facility] Stop: 08/19/20 16:29 Last Admin: 07/22/20 18:22 Dose: 18 units Documented by: Insulin Aspart (Insulin Aspart 100 Units/Ml 3 Ml Pen) 0 units SC TODAY@0200 ONE Stop: 07/23/20 02:01 Insulin Glargine (Insulin Glargine Solostar 100 Units/Ml 3 Ml Pen) 36 units SC QDD [facility]; Protocol Stop: 08/20/20 16:29 Last Admin: 12/04/20 18:21 Dose: 36 units Documented by: Insulin Human NPH (Insulin Human Nph) 0 units SC QDB [facility]; Protocol Stop: 08/21/20 07:29 Last Admin: 07/22/20 07:55 Dose: 30 units Documented by: Lisinopril (Lisinopril 5 Mg Tab) 5 mg PO QAM [facility] Stop: 08/20/20 08:59 Last Admin: 07/22/20 07:33 Dose: 5 mg Documented by: Lorazepam (Lorazepam 0.5 Mg Tab) 0.5 mg PO Q8H PRN PRN Reason: Sedation/Anxiety Stop: 08/19/20 14:22 Magnesium Hydroxide (Magnesium Hydroxide Susp 30 Ml Udc) 30 ml PO DAILY PRN PRN Reason: Constipation Stop: 08/19/20 14:22 Metoclopramide HCl (Metoclopramide Hcl Inj 5 Mg/Ml 2 Ml Vial) 10 mg IV Q6H PRN PRN Reason: Nausea &/or Vomiting Stop: 08/19/20 14:22 Miscellaneous (Carbohydrates For Hypoglycemia ) 15 - 30 gm PO UD PRN PRN Reason: Hypoglycemia Treatment Stop: 08/19/20 15:44 Miscellaneous (Remove Nicoderm Patch) 1 ea N/A DAILY@0859 [facility] Stop: 08/20/20 08:58 Last Admin: 07/22/20 07:34 Dose: Not Given Documented by: Miscellaneous Information (Pharmacy Glycemic Mgmt Consult) 1 ea N/A UD PRN PRN Reason: Consult Stop: 08/19/20 15:14 Naloxone HCl (Naloxone Hcl 0.4 Mg/1 Ml Vial/Carp) 0.1 mg IV Q5M PRN; Protocol PRN Reason: Oversedation/Resp Depression Stop: 08/19/20 14:22 Nicotine (Nicotine 21 Mg/24 Hr Tdsy) 21 mg TD [facility] Stop: 08/19/20 16:59 Last Admin: 07/22/20 07:34 Dose: Not Given Documented by: Non-Formulary Medication (Empagliflozin) 25 mg PO [facility] Stop: 08/20/20 08:59 Ondansetron HCl (Ondansetron Inj 2 Mg/Ml 2 Ml Vial) 4 mg IV Q6H PRN PRN Reason: Nausea &/or Vomiting Stop: 08/19/20 14:22 Ondansetron HCl (Ondansetron 4 Mg Od Tab) 4 mg PO Q6H PRN PRN Reason: Nausea Stop: 08/19/20 14:22 Oxycodone HCl (Oxycodone Hcl Ir 5 Mg Tab (Immediate Release)) 5 - 10 mg PO Q4H PRN PRN Reason: Moderate-Severe Pain & Pre PT Stop: 08/03/20 14:22 Last Admin: 07/22/20 18:27 Dose: 10 mg Documented by: Pneumococcal Polyvalent Vaccine (Do Not Administer Pneumococcal Vaccine) 1 ea N/A PRN PRN PRN Reason: Notification Stop: 08/19/20 14:22 Sodium Biphosphate/Sodium Phosphate (Sod Phosphate/Sod Biphosphate Enema 132 Ml Btl) 132 ml NM ONE PRN PRN Reason: Constipation Stop: 08/19/20 14:22 Tramadol HCl (Tramadol Hcl 50 Mg Tablet) 50 - 100 mg PO Q4H PRN PRN Reason: Moderate-Severe Pain & Pre PT Stop: 08/19/20 14:22 Last Admin: 07/22/20 08:01 Dose: 100 mg Documented by: Trazodone HCl (Trazodone Hcl 100 Mg Tab) 300 mg PO HS [facility] Stop: 08/19/20 20:59 Last Admin: 07/21/20 21:22 Dose: 300 mg Documented by: (1) Diabetes mellitus, type 2 Diabetes mellitus mcc insulin use: with mcc use (2) Hypertension Hypertension type: essential hypertension Qualified Code(s): I10 - Essential (primary) hypertension
[2020-07-22] MEDS: traZODone HCL 100 MG TAB PO SCH (20:47)
[2020-07-23] MEDS ORDERED: INSULIN ASPART 100 UNITS/ML 3 ML PEN SC ONE (02:00)
[2020-07-23] MEDS: INSULIN HUMAN NPH SC SCH (07:30)
[2020-07-23] MEDS: INSULIN ASPART 100 UNITS/ML 3 ML PEN SC SCH (07:30)
[2020-07-23] MEDS: GABAPENTIN 300 MG CAP PO SCH (09:00)
[2020-07-23] MEDS: lisinopril 5 MG TAB PO SCH (09:00)
[2020-07-23] MEDS: FLUoxetine HCL 20 MG CAP PO SCH (09:00)
[2020-07-23] MEDS: ATORVASTATIN 40 MG TAB PO SCH (09:00)
[2020-07-23] MEDS: dexAMETHasone 8 MG in SYRINGE 0 ML IV SCH (09:00)
[2020-07-23] MEDS: oxyCODONE HCL IR 5 MG TAB (IMMEDIATE RELEASE) PO PRN (11:00)
--- NOTE | 2020-08-08 10:00 | Discharge Summary ---
Date of Service August 08, 2020 Admission HPI Per Admitting Provider This is a 64-year-old male who presents with above-mentioned diagnosis failing course of nonoperative care is here for surgical invention. Principal Diagnosis Lumbar spinal stenosis with neurogenic claudication Discharge Data Allergies Allergy/AdvReac Type Severity Reaction Status Date / Time No Known Allergies Allergy Verified 07/20/20 08:51 Consultations 07/20/20 14:23 Consult Case Management - Discharge Planning Routine Consult Hospitalist Routine Procedures Performed Operation Date: 07/20/20 10:25 Actual Procedures p L4-S1 Decompression Fusion, Interbody at L4-L5 and L5-S1, Spinal Cord Monitoring, Application of Bone Infuse and Allograft - Josh Sinclair DO Ordered Studies 07/20/20 12:25 FL fluoroscopy <1hr Routine FL lumbar spine 2-3V Routine Hospital Course (1) Neurogenic claudication due to lumbar spinal stenosis: Patient with lumbar decompression fusion tolerated well second orthopedic for postoperative. Postop day 1 he was up and ambulate progressively state #2 on postop day 3 pain was well controlled VENKATESH drain decreased appropriately. Subsequently discharged home. Discharge orders instructions from the chart for further review. Total Time Total Time Spent Total Time Spent (In Minutes): 20 minutes Discharge Plan Discharge Items Patient Disposition: Home - Self-Care Reason For Visit: Spinal Stenosis, Lumbar Region without Neurogenic Discharge Diagnosis: Lumbar spinal stenosis with radiculopathy Activity: As commented below Non-emergency contact: Primary Care Provider Call non-emergency contact if: you have any medication questions Follow-up/Referrals: PCP,NO [Primary Care Provider] - Diet: Regular Addtl Attending Provider Instructions: ACTIVITY RECOMMENDATIONS: SELF CARE INSTRUCTIONS AFTER THORACIC/LUMBAR FUSIONS 1. You may walk to your tolerance. It is good exercise for your legs and back. Expect some back and intermittent leg aches and pains. 2. You may perform "counter-top" level activities (make a sandwich, joni with a project, etc.). 3. No bending or lifting of more than 10 pounds or back twisting of any nature (roll like a log when turning in bed). 4. You may ride in a car for 20-30 minutes at a time. No driving until after your first visit with your doctor. 5. Frequent changes of position and restricting sitting to 30 minutes at a time will help limit the amount of back spasms and stiffness you may experience. 6. You may discontinue the use of ambulatory aids (cane, crutches, etc.) once your strength and confidence allow. 7. You may it integration architect the shower and let water strike your incision when you arrive home at least once daily. Do not take a tub bath, sit in a hot tub or go into a swimming pool until after your first recheck in the office. SPECIAL CARE INSTRUCTIONS: VERY IMPORTANT TO READ AND REVIEW A. Your surgical incision has been closed with a cosmetic suture under the skin that will dissolve in about 6 weeks. In 14 days, you can use a pair of clean scissors and cut the suture that is left outside of the skin at the ends of your incision. 1. The small skin tapes can be removed 7 days after surgery if they have not fallen off by that point. 2. You may keep the wound open to air as much as possible to promote healing after post-op day number 5 unless told otherwise by your doctor. 3. If you think the wound looks like it is becoming infected (redness or worsening drainage) and/or you are experiencing fever, chill or worsening back pain and muscle spasms, contact the office so that we may evaluate you as soon as possible. B. Complications are uncommon, but please contact us if you have any signs or symptoms of: 1. wound infection (fever higher than 102.5 degrees F, redness, separation of wound, drainage, or increasing pain from the incision) 2. blood clots in legs (pain, swelling, redness and warmth in legs) 3. urinary tract infection (fever higher than 102.5 degrees F, burning upon urination or increased frequency of urination) 4. nerve problems (inability to walk on your toes or heels, numbness, loss of bowel or bladder control) 5. any other symptoms that concern you C. Please call the office at if you have any concerns or questions about your operation or recovery. D. No smoking! Smoking drastically decreases the chance of a solid fusion. E. Do not take any anti-inflammatory medications (Indocin, Advil, Motrin, Aspirin, Naprosyn, etc.) as these may inhibit the chance of a solid fusion. Tylenol is okay to take for pain. MANAGING PAIN AFTER SPINAL SURGERY 1. Narcotic medication is intended for short-term use and will be provided for surgical pain. Surgical pain usually lasts for a period of 4-6 weeks. Narcotic medication includes Percocet, Vicodin, Darvocet, Tylenol #3 or Lortab. 2. Longer-term pain is more appropriately treated with non-narcotic medication such as Tylenol ES. 3. Muscle spasm is not appropriately treated with narcotics. Muscle relaxers such as Soma, Flexeril or Skelaxin can be used along with Tylenol ES. 4. Remember that we all live with some "aches and pains". This is not unusual or uncommon after an injury or as we get older. a. Back pain is expected and may include muscle spasms for 4 to 6 weeks after surgery. The pain should gradually improve. If the pain worsens for no apparent reason, please contact the office. b. Intermittent leg pain may also be experienced and should not be concerned about unless it worsens for no apparent reason. If so, please contact the office. 5. We will provide appropriate medication within the normal guidelines of their prescribed use. We will also be very cautious and aware of potential abuse and extended duration of patients' medication needs. a. Pain medications are for your comfort and to assist with sleep and rest so that the tissue can heal. They are not provided in order to return to normal activity and should not be used through the day. To do so or worsening pain at night can result from ongoing tissue damage and development of tolerance to the prescribed medicine. 6. Please allow 2-3 days to process refills. Prescriptions will not be mailed but must be picked up at the office. FOLLOW UP VISIT: Keep your scheduled follow-up appointment. Any questions, please call the office at . Pending Studies at Discharge: No Stand-Alone Forms: [facility] [employer], Smoking Cessation Medications and DC Order Prescriptions: New tramadol 50 mg tablet 50 mg PO Q6H PRN (Reason: pain, moderate) Qty: 30 RF: 0 oxycodone 5 mg tablet 5 mg PO Q6H PRN (Reason: pain, severe) Qty: 30 RF: 0 Continued celecoxib 200 mg Capsule 200 mg PO BID RF: 0 metformin 500 mg Tablet 1,000 mg PO BID RF: 0 atorvastatin 80 mg Tablet 40 mg PO QAM RF: 0 Lantus U-100 Insulin 100 unit/mL Solution 36 unit SUBCUT QPM RF: 0 trazodone 100 mg Tablet 300 mg PO HS RF: 0 insulin aspart U-100 [Novolog U-100 Insulin aspart] 100 unit/mL Solution 6 unit SUBCUT QID RF: 0 gabapentin 300 mg Capsule 300 mg PO BID RF: 0 lisinopril 5 mg Tablet 5 mg PO QAM RF: 0 hydroxyzine HCl 10 mg Tablet 10 mg PO TID PRN (Reason: Anxiety) RF: 0 fluoxetine 20 mg Capsule 40 mg PO QAM RF: 0 empagliflozin 25 mg Tablet 25 mg PO QAM RF: 0 Discharge Orders: Discharge Order (Routine); Ordered 07/23/20 Ordered By: Josh Sinclair Admission Data Admit Date/Time: 07/20/20 13:09 Attending Provider: Josh Sinclair Admit Provider: Josh Sinclair Primary Care Provider: PCP,NO Other Providers: Dalia Atkinson
== END 2020-07-23 11:17 | disposition home or self-care (01) | DRG 455 ==
LOC: ASU 08:22 → 3E 13:09